=== PATIENT | female | born 1960 ===

== ENCOUNTER 2024-12-06 09:31 | Outpatient (CLI) | payer OTHER, SELFPAY | END 2024-12-06 09:32 | disposition home or self-care (01) | PROVIDERS: PCP Family Medicine; Visit Provider Family Medicine | DX: R00.2 Palpitations (principal); R06.09 Other forms of dyspnea; E78.5 Hyperlipidemia, unspecified | CPT/HCPCS: 80053; 80061; 82247; 82248; 84443 ==

== ENCOUNTER 2024-12-19 13:45 | Outpatient (CLI) | payer OTHER, SELFPAY ==
[2024-12-19 15:00] VITALS: BP 132/78; PULSE 95; RESP 18
--- NOTE | 2024-12-19 15:14 | W.PM.STED ---
Stress Test Note Date Date of test: 12/19/24 Providers Primary care provider: Caridad Stinson Stress test physician: Juno Short Stress Test Note Stress test ordered: Stress Echo Indication for test: Palpitations Stress test medicine: Definity Results discussion: This very nice lady presents for the above test. Indication is palpitations, after discussing risks benefits and side effects she wants to proceed. Cardiac stress test medical history form is reviewed, pretest EKG shows normal sinus rhythm with a ventricular rate of 78 blood pressure 123/80. Standard Allen protocol is employed over a time course of 6 minutes 46 seconds, she achieved a metabolic equivalent of 8.1 Mets with a maximum heart rate of 152 which is 116% of the maximum. Test is terminated because of fatigue and some shortness of breath, during this test there is no ST wave changes suggestive of ischemia, she recovered normally, there is no dysrhythmias. Impression: Negative electrographic portion of stress test, subjectively positive with shortness of breath. Follow up suggested: Await echo imaging, this will be read by Cardiology, clinical correlation will be needed, she did very well however and recovered normally. Conditioning was felt to be good
== END 2024-12-19 13:46 | disposition home or self-care (01) ==
LOC: STRESS 13:46
PROVIDERS: PCP Family Medicine; Visit Provider Family Medicine
DX: R00.2 Palpitations (principal); R06.09 Other forms of dyspnea
CPT/HCPCS: 93016; 93325; 93351

== ENCOUNTER 2024-12-26 11:21 | Outpatient (CLI) | payer OTHER, SELFPAY ==
--- NOTE | 2024-12-26 11:30 | CRLHL7_ITS ---
Patient: YEYO VALENTIN Facility:?[facility] Patient ID:?[id number] Site Patient [id number]:?[id number]. Site :?[id number] Study:?XRay-Breast 3D [place] SCREENING-12/26/2024 12:34:45 PM Ordering Physician:Guido Gooden Final Report: INDICATION: BILATERAL SCREENING MAMMOGRAM, ASYMPTOMATIC 64 Y/O FEMALE COMPARISON: TESTS: 11/29/2020, 09/03/2014, 03/24/2008 TECHNIQUE: Digital mammogram in CC and MLO projections including computer-aided detection (CAD) and tomosynthesis. BREAST COMPOSITION: There are scattered areas of fibroglandular density. FINDINGS: No suspicious findings. ASSESSMENT: BI-RADS 2 Benign RECOMMENDATION: Annual screening mammogram. A lay language report of this examination will be provided to the patient. Dictated by: Jeff Wright MD @ 01/01/2025 13:17:29 Signed by: Jeff Wright MD @ 01/01/2025 1:17:29 PM (Electronic Signature) (Electronic Signature)
== END 2024-12-26 11:22 | disposition home or self-care (01) ==
LOC: MAMMO 11:22
PROVIDERS: PCP Family Medicine; Visit Provider Family Medicine
DX: Z12.31 Encounter for screening mammogram for malignant neoplasm of breast (principal)
CPT/HCPCS: 77063; 77067

== ENCOUNTER 2025-01-01 08:49 | Outpatient (CLI) | payer OTHER, SELFPAY | END 2025-01-01 08:50 | disposition home or self-care (01) | LOC: NFLDREF 01-03 01:47 | PROVIDERS: PCP Family Medicine; Referring Provider Family Medicine; Visit Provider Family Medicine | DX: Z00.00 Encounter for general adult medical examination without abnormal findings (principal); E78.5 Hyperlipidemia, unspecified | CPT/HCPCS: 80053; 80061 ==

== ENCOUNTER 2025-01-17 13:26 | Outpatient (CLI) | payer OTHER, SELFPAY ==
--- NOTE | 2025-01-17 13:30 | CRLHL7_ITS ---
For Patients: As a result of the Century Cures Act, medical imaging exams and procedure reports are released immediately into your electronic medical record. You may view this report before your referring provider. If you have questions, please contact your health care provider. DXA BONE MINERAL DENSITY STUDY Reason for exam: Asymptomatic menopausal state. Current height (in): 64. Weight (lb): 175. Menopause age: 53. Ethnicity: White. 1. Have you had a previous hip or vertebral fracture? No. 2. Have you had any fractures during your adult life which did not result from significant trauma (e.g., auto accident)? No. 3. Did either of your parents have a hip fracture? Yes. 4. Do you smoke? No. 5. Have you ever taken Glucocorticoids? No. 6. Do you have rheumatoid arthritis? No. 7. Do you have secondary osteoporosis? No. 8. Do you drink 3 or more alcoholic drinks per day? No. 9. Are you being treated for osteoporosis? No. 10. Have you ever taken any of the following medications: Actonel, Evista, Fosamax, Miacalcin, Reclast, Boniva, Forteo, HRT (i.e. estrogen/hormone therapy), Protelos, Prolia, Vitamin D, Calcium, other ??? please specify. ANSWER: Yes, vitamin D and calcium. 11. Do you have any of the following medical conditions: Anorexia or bulimia, asthma or emphysema, end stage renal disease, hyperparathyroidism, any seizure disorders, cancer, inflammatory bowel diseases, hysterectomy, other ??? please specify. ANSWER: No. 12. What was your maximum height (inches)? 65. 13. Do you perform weight bearing exercise regularly? Yes. 14. Do you regularly consume dairy products? Yes. 15. Do you drink caffeinated beverages? No. 16. At what age did your period start? 11. 17. Are you premenopausal? No. 18. How many full-term pregnancies have you had? 1. 19. Have you ever missed your period for more than 6 months in a row (not including or menopause)? No. TECHNIQUE: Bone mineral density study was performed using the [employer]. FINDINGS: The results of the study expressed as bone mineral density (BMD) are as follows: Lumbar spine L1 to L4: BMD: 0.857 g/cm2. T-score: -1.7. Z-score: 0.10.1. Neck Left: BMD: 0.659 g/cm2. T-score: -1.7. Z-score: -0.1. Right: BMD: 0.606 g/cm2. T-score: -2.2. Z-score: -0.6. Total Left: BMD: 0.834 g/cm2. T-score: -0.9. Z-score: 0.4. Right: BMD: 0.837 g/cm2. T-score: -0.9. Z-score: 0.4. IMPRESSION: Osteopenia. *Comparison exams done prior to 12/2019 were performed on different unit, [employer]. FRAX 10-year Fracture Risk Major Osteoporotic Fracture: 20 percent Hip Fracture: 2.3 percent Reported Risk Factors: [place] () Neck BMD=0.606, BMI=30.0, parental fracture Jeff Wright M.D. Diagnostic Radiologist [email or web address] [email or web address]/Dictated by: Jeff Wright MD @ 01/17/2025 3:57:00 PM (Electronically Signed)
== END 2025-01-17 13:27 | disposition home or self-care (01) ==
LOC: RAD 13:29
PROVIDERS: PCP Family Medicine; Visit Provider Family Medicine
DX: Z78.0 Asymptomatic menopausal state (principal); M85.89 Other specified disorders of bone density and structure, multiple sites
CPT/HCPCS: 77080

== ENCOUNTER 2025-01-23 08:53 | Outpatient (CLI) | payer OTHER, SELFPAY ==
--- NOTE | 2025-01-23 10:21 | P.ANES_ITS ---
Anesthesia Charges Start Date/Time Anesthesia Start Date: 01/23/25 Anesthesia Start Time: 09:54 Stop Date/Time Anesthesia Stop Date: 01/23/25 Anesthesia Stop Time: 10:19 Coding CPT Codes CPT Codes: ANES LWR INTST SCR COLSC - 79764 ([id number]) P2 - PATIENT W/MILD SYST DISEASE, QK - TAG METER OPERATOR 2-4 CNCRNT ANES PROC, QX - SYSTEMS SOFTWARE DEVELOPER SVC W/ MD MED DIRECTION
--- NOTE | 2025-01-23 10:21 | W.ANESCHARGE ---
Anesthesia Charges Start Date/Time Anesthesia Start Date: 01/23/25 Anesthesia Start Time: 09:54 Stop Date/Time Anesthesia Stop Date: 01/23/25 Anesthesia Stop Time: 10:19 Coding CPT Codes CPT Codes: ANES LWR INTST SCR COLSC - 20442 ([id number]) P2 - PATIENT W/MILD SYST DISEASE, QK - CHILD SUPPORT AGENT 2-4 CNCRNT ANES PROC, QX - VOCATIONAL REHABILITATION SPECIALIST SVC W/ MD MED DIRECTION
--- NOTE | 2025-01-23 10:22 | P.ANES_ITS ---
Anesthesia Charges Start Date/Time Anesthesia Start Date: 01/23/25 Anesthesia Start Time: 09:54 Stop Date/Time Anesthesia Stop Date: 01/23/25 Anesthesia Stop Time: 10:19 Coding CPT Codes CPT Codes: ANES LWR INTST SCR COLSC - 73897 ([id number]) P2 - PATIENT W/MILD SYST DISEASE, QK - HEADER SET UP OPERATOR 2-4 CNCRNT ANES PROC, QX - TANK ASSEMBLER SVC W/ MD MED DIRECTION
--- NOTE | 2025-01-23 10:22 | W.ANESCHARGE ---
Anesthesia Charges Start Date/Time Anesthesia Start Date: 01/23/25 Anesthesia Start Time: 09:54 Stop Date/Time Anesthesia Stop Date: 01/23/25 Anesthesia Stop Time: 10:19 Coding CPT Codes CPT Codes: ANES LWR INTST SCR COLSC - 81167 ([id number]) P2 - PATIENT W/MILD SYST DISEASE, QK - SHIPWRIGHT APPRENTICE 2-4 CNCRNT ANES PROC, QX - HYDROGEN TREATER SVC W/ MD MED DIRECTION
== END 2025-01-23 08:54 | disposition home or self-care (01) ==
LOC: OP CLINIC 08:54
PROVIDERS: PCP Family Medicine; Visit Provider Surgery
DX: Z12.11 Encounter for screening for malignant neoplasm of colon (principal); Z86.0101 Personal history of adenomatous and serrated colon polyps; K57.30 Diverticulosis of large intestine without perforation or abscess without bleeding
CPT/HCPCS: 00812; 45378; J2704